=== PATIENT | male | born 1980 | race Caucasian/White ===

== ENCOUNTER 2022-04-30 08:39 | Emergency (ER) | payer SELFPAY ==
[2022-04-30] VITALS (12 sets, daily range): BP systolic 111–154; BP diastolic 77–97; PULSE 58–73; RESP 12–21; TEMP 36.8; O2SAT 99–100
--- NOTE | ~2022-04-30 | XR_ITS ---
EXAMINATION: XR chest 2V DATE: 04/30/2022 09:16 INDICATION: Left chest pain. Dizziness. TECHNIQUE: Frontal and lateral views of the chest were obtained on 3 radiographs. COMPARISON: None. FINDINGS: The chest demonstrates clear lungs without pneumonia, pleural effusion, or pneumothorax. Th e heart size is normal. IMPRESSION: 1. No acute cardiopulmonary disease. Reviewed, dictated and finalized at location B.
--- NOTE | 2022-04-30 08:42 | ECG_ITS ---
Measurements Intervals [place] Rate: 70 P: 59 AR: 160 QRS: 18 QRSD: 98 T: 35 QT: 387 QTc: 418 Interpretive Statements SINUS RHYTHM BASELINE ARTIFACT LOW-VOLTAGE QRS IN LIMB LEADS POSSIBLE RIGHT VENTRICULAR CONDUCTION DELAY [RSR (QR) IN V1/V2] BORDERLINE ECG NO PREVIOUS ECG AVAILABLE FOR COMPARISON Electronically Signed On 04-30-2022 17:27:37 CDT by Bipin Suárez M.D.
--- NOTE | 2022-04-30 08:54 | ED.CHESTPAIN ---
HPI - Chest Pain General Chief Complaint: Chest Pain Stated Complaint: Chest pain Time Seen by Provider: 04/30/22 08:53 History of Present Illness HPI narrative: Patient is a 41-year-old male who is previously healthy here for evaluation of chest pain for the past 12 hours. Patient describes the pain as a pulling sensation along the left side of his chest that begins under his left ribs and radiates into his left neck. States that the pain is better when he is lying down flat and will occasionally come on with movement of his left shoulder. He states that he has had similar type pain in the past but it has gone away on its own. He took an Advil before coming without significant relief of his pain. Additionally reporting dizziness today, states that he felt unsteady when he stood up, and fell over. He has never had a dizzy sensation like this in the past. States yesterday he was feeling somewhat weak and fatigued. Denies any difficulty breathing, cough, fevers, leg swelling, headaches or visual changes. Related Data Allergies Allergy/AdvReac Type Severity Reaction Status Date / Time No Known Allergies Allergy Verified 04/30/22 09:32 Review of Systems Review of Systems: Gen: Reports dizziness. Denies fevers or chills Eyes: Denies eye pain or visual change ENT: Denies congestion Respiratory: Denies shortness of breath or cough CV: Reports chest pain. Denies palpitations GI: Denies abdominal pain nausea, emesis or diarrhea denies burning, urgency, frequency or hematuria Musculoskeletal: Reports left-sided neck pain. Neuro: Reports generalized weakness. Denies numbness, tingling or focal weakness Skin: Denies rash Except as documented, all other systems reviewed and negative Exam Narrative: APPEARANCE: Well appearing, no pain in distress, well-nourished. Head: Normocephalic and atraumatic. EYES: Fatigable, horizontal nystagmus. PERRLA/EOMI, conjunctivae clear NOSE: No nasal drainage EARS: external ear normal in appearance THROAT: Oropharynx is clear. Mucous membranes are moist. NECK: Supple. No adenopathy, no masses. RESPIRATORY: Airway patent, respirations nonlabored. Clear to auscultation bilaterally, no rales, rhonchi, wheezing. CARDIOVASCULAR: Regular rate and rhythm without murmurs, rubs, or gallops. ABDOMINAL: Normoactive bowel sounds. Soft, nontender, nondistended. No rebound tenderness or guarding. MUSCULOSKELETAL: External rotation of left shoulder reproduces patient's pain. No tenderness to palpation along chest wall, ribs. extremities are warm and well-perfused. Moves all extremities well. No edema. NEURO: No drift of upper or lower extremities. [id number] normal. Cranial nerves II through XII intact. 5 out of 5 strength in bilateral upper and lower extremities. Normal speech. SKIN: No rash to the thorax. Skin is warm and dry. PSYCHIATRIC: Normal affect/mood.. Course Vital Signs Vital signs: Vital Signs Temperature 98.2 F 04/30/22 08:44 Pulse Rate 63 04/30/22 08:44 Respiratory Rate 14 04/30/22 08:44 Blood Pressure 154/97 H 04/30/22 08:44 Pulse Oximetry 99 04/30/22 08:44 Oxygen Delivery Room Air 04/30/22 08:44 Temperature 98.2 F 04/30/22 08:44 Pulse Rate 59 L 04/30/22 09:32 Respiratory Rate 16 04/30/22 09:32 Blood Pressure 119/77 04/30/22 09:32 Pulse Oximetry 99 04/30/22 09:32 Oxygen Delivery Room Air 04/30/22 08:44 MDM - Chest Pain MDM Narrative Medical decision making narrative: 41-year-old male here for evaluation of chest pain and dizziness for the past day. Here his vital signs are normal and he is nontoxic-appearing. His neurologic exam is normal and his heart lungs are clear to auscultation, chest pain is reproducible with movement of left shoulder. Able to ambulate in the ED without issue. Exam without evidence of volume overload so doubt heart failure. EKG without signs of active ischemia. Given the timing of pain to ER presentation, barrett
[2022-04-30 08:56] LABS: Basophils Absolute Auto 0.1 K/mm3 (0.0-0.1); Basophils Percent Auto 0.9 % (0.2-1.2); Eosinophils Absolute Auto 0.1 K/mm3 (0-0.3); Eosinophils Percent Auto 2.5 % (0-4.4); Hemoglobin 14.2 g/dL (14.0-18.0); Immature Granulocyte Absolute 0.02 K/mm3 (0.00-0.031); Immature Granulocyte Percent A 0.4 % (0-0.5); Lymphocytes Absolute Auto 1.56 K/mm3 (0.9-3.2); Lymphocytes Percent Auto 28.1 % (18.3-44.2); Mean Corpuscular HGB Conc 33.8 g/dl (32-36); Mean Corpuscular Hemoglobin 31.6 pg (26-34); Mean Corpuscular Volume 93.5 fl (80-100); Mean Platelet Volume 11.3 fl (7.4-10.4); Monocytes Absolute Auto 0.5 K/mm3 (0.1-0.6); Monocytes Percent Auto 9.7 % (2.6-8.5); Neutrophils Absolute Auto 3.2 K/mm3 (1.3-6.7); Neutrophils Percent Auto 58.4 % (45.5-73.1); Platelet Count Result 245 k/mm3 (150-375); Red Blood Count 4.49 M/mm3 (4.6-6.20); Red Cell Distribution Width 13.7 % (11.5-14.5); White Blood Count 5.6 K/mm3 (4.5-10.0)
[2022-04-30 09:07] LABS: Alanine Aminotransferase 33 U/L (6-50); Albumin Level 4.8 g/dL (3.5-5.1); Alkaline Phosphatase 77 U/L (38-126); Anion Gap 11 mmol/L (8-16); Aspartate Amino Transferase 30 U/L (17-59); Bilirubin,Total 0.6 mg/dL (0.2-1.3); Blood Urea Nitrogen 10 mg/dL (9-20); Calcium 9.1 mg/dL (8.4-10.2); Carbon Dioxide 26 mmol/L (22-30); Chloride 103 mmol/L (98-107); Estimated CRCL calculation 99 ml/min; Estimated Glomerular Filt Rate > 60; Glucose 108 mg/dL (65-110); Lipase 131 U/L (23-300); Sodium 140 mmol/L (137-145)
[2022-04-30 09:08] LABS: INR 0.9; Prothrombin Time 12.2 Seconds (11.1-14.7)
[2022-04-30 09:09] LABS: Partial Thromboplastin Time 27.4 SECONDS (22.3-36.8)
[2022-04-30 09:18] LABS: Troponin I < 0.012 ng/mL (0.000-0.034)
== END 2022-04-30 10:00 | disposition home or self-care (01) ==
PROVIDERS: Emergency Provider Emergency Medicine
DX: R07.89 Other chest pain (principal)
CPT/HCPCS: 36415; 71046; 80053; 83690; 84484; 85025; 85610; 85730; 93005; 99284

== ENCOUNTER 2023-11-30 13:25 | Emergency (ER) | payer BC, SELFPAY ==
[2023-11-30 13:38] VITALS: BP 135/78; PULSE 72; RESP 18; TEMP 36.6; O2SAT 100
--- NOTE | 2023-11-30 14:09 | ED.ABDPAIN ---
HPI - Abdominal Pain General Chief Complaint: Abdominal Pain Stated Complaint: Abdominal Pain Time Seen by Provider: 11/30/23 13:50 Source: patient, family, RN notes reviewed and old records reviewed Mode of arrival: ambulatory Limitations: no limitations History of Present Illness HPI narrative: 43 year old male presents to [facility] care with complaints of abdominal pain starting around 0400 this morning that included cramping and gas which was initially more centralized abdomen. Patient reports that pain has moved more to the right quadrant of his abdomen is sharp at times with nausea and vomiting about 1 hour prior to arrival in clinic. Patient states that he had a normal bowel movement at 0200 this morning and has not experienced any diarrhea. Patient reports no known fevers but has had hot flashes. Patient has noted pain on palpation to lower right abdomen. MD elicited complaint: abdominal pain Onset (ago): hour(s) (0400 today) Pain Consistency: other (increasing intensity) Pain scale (0-10): 6 Quality: aching and sharp Treatments prior to arrival: antacids Related Data Home Medications Medication Instructions Recorded Confirmed No Home Medications 11/30/23 11/30/23 Allergies Allergy/AdvReac Type Severity Reaction Status Date / Time No Known Allergies Allergy Verified 11/30/23 17:49 Review of Systems Review of Systems: CONSTITUTIONAL: Denies any fever, positive hot flashes ENT: Denies rhinorrhea, congestion, sore throat, or otalgia. CARDIOVASCULAR: Denies chest pain, palpitations, or edema. RESPIRATORY: Denies cough or dyspnea. GASTROINTESTINAL: Reports right sided abdominal pain, nausea, vomiting, no diarrhea. GENITOURINARY: Denies dysuria or hematuria. SKIN: Denies rash or itching. MUSCULOSKELETAL: Denies back pain, joint pain, or myalgia. NEUROLOGIC: Denies headache, numbness, or weakness. All systems reviewed & are unremarkable except as noted in HPI and below PMFSH Past Medical History Medical History (Updated 11/30/23 @ 18:50 by Fidelina Crowley NP) No active medical problems Family History Family History (Updated 11/30/23 @ 17:42 by Amberly Draper RN) Father Kidney stone Social History Social History (Updated 11/30/23 @ 15:51 by Caitlin Lezama PA-C) Smoking status: Never smoker Drinks per week: 6 Substance use: never Do You Feel Safe in your Home?: Yes Lack of Transportation: No Lack of Food: Never True Current Housing: I Have Housing Concerned About Future Housing: No Difficulty Paying Gas/Electric Bills: No Difficulty Paying for Meds: No Currently Unemployed: No Education: Don't Know Difficulty w/ Childcare or Family Care: No Spiritual care concerns: No Comments At time of signature, agree with nursing past medical, surgical, social and family history. There is no relevant family history pertinent to the presenting complaint Exam Narrative: GENERAL: Well-appearing, well-nourished, and in some acute distress. HEAD: Normocephalic, atraumatic. EYES: PERRLA, conjunctivae clear, and EOMI. ENT: Nares clear. Mucous membranes moist. Oropharynx without edema, erythema, or lesions. Tonsils not enlarged and without exudate. NECK: Supple. No lymphadenopathy CHEST: Speaks in full sentences. No respiratory distress.SAO2 100% on room air HEART: Regular rate and rhythm. ABDOMEN: Soft, flat, nondistended. positive guarding right abdomen, rebound tenderness, no rigidity. No pulsatilla masses. Bowel sounds present in all four quadrants. No organomegaly. Negative Ponce?s sign, positive McBurney point tenderness. No periumbilical tenderness. No Supra public tenderness or distension. Good femoral pulses bilaterally. No hernia noted. No scars or surface trauma. SKIN: Warm, dry, no rash. NEURO:? Alert and oriented x3. PSYCH: Normal mood and affect Course Course Emergency Course: Patient is aware of diagnosis, understands and agrees t
== END 2023-11-30 14:30 | disposition short-term general hospital (02) ==
PROVIDERS: Emergency Provider Registered Nurse
DX: R10.31 Right lower quadrant pain (principal)
CPT/HCPCS: 99212; G0463

== ENCOUNTER 2023-11-30 14:49 | Observation (INO) | payer BC, SELFPAY ==
--- NOTE | ~2023-11-30 | CT_ITS ---
EXAMINATION: CT abdomen pelvis w con DATE: 11/30/2023 15:38 INDICATION: Abdominal pain TECHNIQUE: Computed tomography (CT) of the abdomen and pelvis was performed with 100 mL Omnipaque-350 intravenous contrast. Automated exposure control and iterative reconstruction technique were employe d. The dose-length product was 551.40 mGy-cm. COMPARISON: None FINDINGS: Mild discoid atelectasis at the lingula. Visualized inferior heart is normal. No pericardial or pleur al effusion. 5 mm low-attenuation cyst versus hemangioma at the dome of the liver. Gallbladder, splee n, pancreas and bilateral adrenal glands are normal. There are bilateral low-attenuation renal cysts the largest on the right measuring 1.3 cm. There is a 7 x 5 mm appendicolith at the neck of the appen eladio. The more distal gas and fluid-filled appendix is dilated to 12 mm with small amount of surroundi ng inflammatory stranding consistent with acute appendicitis. Bowels are otherwise normal with no abn ormal wall thickening or obstruction. Bladder is normal. No free intraperitoneal gas or fluid. No pat hologically enlarged abdominal or pelvic lymphadenopathy. 3 mm retrolisthesis L5 on S1. Couple bone i slands at the right femoral head. IMPRESSION: 1. Appendicolith with dilation of the more distal appendix and mild periappendiceal inflammatory stra nding consistent with acute appendicitis. Dr. Lau discussed these findings with Dr. Lezama at 3: 48 PM. Reviewed, dictated and finalized at location A. IMPRESSION: 1. Appendicolith with dilation of the more distal appendix and mild periappendi ceal inflammatory stranding consistent with acute appendicitis. Dr. Lau di scussed these findings with Dr. Lezama at 3:48 PM.
[2023-11-30 14:57] VITALS: BP 127/73; PULSE 70; RESP 16; TEMP 37; O2SAT 98
[2023-11-30 15:12] LABS: Basophils Percent Auto 0.3 % (0.2-1.2); Eosinophils Percent Auto 0.1 % (0-4.4); Hematocrit 42.1 % (42.0-52.0); Hemoglobin 14.2 g/dL (14.0-18.0); Immature Granulocyte Absolute 0.05 K/mm3 (0.00-0.031); Immature Granulocyte Percent A 0.4 % (0-0.5); Lymphocytes Absolute Auto 0.83 K/mm3 (0.9-3.2); Lymphocytes Percent Auto 6.3 % (18.3-44.2); Mean Corpuscular HGB Conc 33.7 g/dl (32-36); Mean Corpuscular Hemoglobin 31.2 pg (26-34); Mean Corpuscular Volume 92.5 fl (80-100); Mean Platelet Volume 11.3 fl (7.4-10.4); Monocytes Absolute Auto 0.9 K/mm3 (0.1-0.6); Monocytes Percent Auto 6.6 % (2.6-8.5); Neutrophils Absolute Auto 11.4 K/mm3 (1.3-6.7); Neutrophils Percent Auto 86.3 % (45.5-73.1); Platelet Count Result 273 k/mm3 (150-375); Red Blood Count 4.55 M/mm3 (4.6-6.20); Red Cell Distribution Width 14.4 % (11.5-14.5); White Blood Count 13.2 K/mm3 (4.5-10.0)
[2023-11-30 15:13] LABS: Appearance Urine Clear (Clear); Bilirubin Urine Negative (Negative); Blood Urine Negative (Negative); Color Urine Yellow (Yellow); Glucose Urine UA Negative (Negative); Ketones Urine Negative (Negative); Leukocyte Esterase Ur Negative LEU/UL (Negative); Nitrate Urine Negative (Negative); Protein Urine Negative (Negative); Specific Grav Ur 1.009 (1.001-1.035); Urobilinogen Urine 0.2 mg/dL (<2.0)
[2023-11-30 15:21] LABS: Alanine Aminotransferase 35 U/L (6-50); Albumin Level 4.9 g/dL (3.5-5.1); Alkaline Phosphatase 85 U/L (38-126); Anion Gap 8 mmol/L (4-12); Aspartate Amino Transferase 31 U/L (17-59); Bilirubin,Total 0.7 mg/dL (0.2-1.3); Blood Urea Nitrogen 9 mg/dL (9-20); Carbon Dioxide 27 mmol/L (22-30); Chloride 102 mmol/L (98-107); Estimated CRCL calculation 108 ml/min; Estimated Glomerular Filt Rate > 60; Glucose 102 mg/dL (65-110); Lipase 103 U/L (23-300); Potassium 4.1 mmol/L (3.4-5.0); Sodium 137 mmol/L (137-145)
[2023-11-30 15:37] LABS: Add Urine Microscopic? NO
[2023-11-30 15:39] LABS: Estimated CRCL calculation 108 ml/min; Estimated Glomerular Filt Rate > 60
--- NOTE | 2023-11-30 15:48 | ED.ABDPAIN ---
HPI - Abdominal Pain General Chief Complaint: Abdominal Pain <DANIELLA Payan Last Filed: 11/30/23 16:47> Stated Complaint: abd pain <DANIELLA Payan Last Filed: 11/30/23 16:47> Time Seen by Provider: 11/30/23 14:55 <DANIELLA Payan Last Filed: 11/30/23 16:47> Source: patient <Caitlin DANIELLA Ludwig Last Filed: 11/30/23 16:47> Mode of arrival: ambulatory <DANIELLA Payan Last Filed: 11/30/23 16:47> Limitations: no limitations <DANIELLA Payan Last Filed: 11/30/23 16:47> History of Present Illness HPI narrative: This is a 43 year old male that presents to the ER for right lower quadrant pain. Reports this morning he started to have mid abdominal pain. This persisted and then localized to the right lower quadrant. Associated with nausea and vomiting. Denies fever, diarrhea or dysuria. <DANIELLA Payan Last Filed: 11/30/23 16:47> Related Data Home Medications: Home Medications Medication Instructions Recorded Confirmed No Home Medications 11/30/23 11/30/23 <DANIELLA Payan Last Filed: 11/30/23 16:47> Allergies/Adverse Reactions: Allergies Allergy/AdvReac Type Severity Reaction Status Date / Time No Known Allergies Allergy Verified 11/30/23 17:49 <DANIELLA Payan Last Filed: 11/30/23 16:47> Review of Systems Review of Systems: CONSTITUTIONAL: Denies fever GASTROINTESTINAL: Reports abdominal pain, nausea, vomiting. Denies diarrhea. GENITOURINARY: Denies dysuria <DANIELLA Payan Last Filed: 11/30/23 16:47> All systems reviewed & are unremarkable except as noted in HPI and below <DANIELLA Payan Last Filed: 11/30/23 16:47> [facility] Past Medical History Medical History: Medical History (Updated 11/30/23 @ 18:50 by Fidelina Crowley NP) No active medical problems <Caitlin Lezama PA-C - Last Filed: 11/30/23 16:47> Family History Family History: Family History (Updated 11/30/23 @ 17:42 by Amberly Draper RN) Father Kidney stone <Caitlin Lezama PA-C - Last Filed: 11/30/23 16:47> Social History Social History: Social History (Updated 11/30/23 @ 15:51 by Caitlin Lezama PA-C) Smoking status: Never smoker Drinks per week: 6 Substance use: never Do You Feel Safe in your Home?: Yes Lack of Transportation: No Lack of Food: Never True Current Housing: I Have Housing Concerned About Future Housing: No Difficulty Paying Gas/Electric Bills: No Difficulty Paying for Meds: No Currently Unemployed: No Education: Don't Know Difficulty w/ Childcare or Family Care: No Spiritual care concerns: No <Caitlin Lezama PA-C - Last Filed: 11/30/23 16:47> Exam Narrative: GENERAL: Well-appearing, well-nourished, and in no acute distress. HEAD: Normocephalic, atraumatic. EYES: EOMI. CHEST: Clear to auscultation. No respiratory distress. No wheezes rales or rhonchi HEART: Regular rate and rhythm. No murmur heard. Normal peripheral pulses. ABDOMEN: Soft, nondistended, normal active bowel sounds. Tender to palpation in the right lower quadrant, without guarding EXTREMITIES: Normal range of motion. No edema. SKIN: Warm, dry, no rash. NEURO: No focal deficits. Alert and oriented x3. PSYCH: Normal mood and affect <Caitlin Lezama PA-C - Last Filed: 11/30/23 16:47> Course Course Emergency Course: Patient updated on his workup and need for admission <Caitlin Lezama PA-C - Last Filed: 11/30/23 16:47> MUSIC EDUCATION DIRECTOR/PA Physician Supervision For this patient encounter, I reviewed the MUSIC EDUCATION DIRECTOR or PA documentation, treatment plan, and medical decision making; and I had [id number] time with this patient. <Ricky Hanna MD - Last Filed: 05/05/24 19:04> Consultations Consultation #1: Spoke with Dr. Garcia about patient and workup. Patient will be admitted. NPO after midnight. He may have clear liquids until then. Contin
[2023-11-30 16:03] VITALS: BP 130/90; PULSE 80; RESP 20; O2SAT 100
[2023-11-30] MEDS: MORPHINE SULFATE (*CRX) 4 MG/ML INJ IV PUSH ×2 (16:08→20:58)
[2023-11-30] MEDS: ONDANSETRON INJ 4 MG/2 ML VIAL IV PUSH ×2 (16:08→20:58)
[2023-11-30] MEDS: PIPERACILLN/TAZ 3.375GM/NS50ML 3.375 GM/50 ML BAG IVPB ×2 (16:40→21:00)
[2023-11-30] MEDS: SODIUM CHLORIDE 0.9% IV 1,000 ML 125 ML IV CONT (16:40)
[2023-11-30] MEDS: KETOROLAC 30 MG/ML VIAL (*BKC) IV PUSH (16:46)
[2023-11-30 16:47] VITALS: BP 136/88; PULSE 78; RESP 15; O2SAT 100
[2023-11-30 17:15] VITALS: O2SAT 100
[2023-11-30 17:30] VITALS: BP 124/72; PULSE 71; RESP 18; TEMP 36.1; O2SAT 99
[2023-11-30 17:35] VITALS: BMI 27.1
--- NOTE | 2023-11-30 17:39 | ADMGEN ---
This patient, Yordan Hooper, was admitted to [facility] Surg Room 312-01. Patient/family oriented to hospital policies and general routines including ID bracelet, bed and alarms, visiting hours, pain management, procedures, bathroom and other care routines, personal items, smoking policy, room service/diet, and visiting hours. Information on how to activate the Rapid Response Team has been discussed. Patient/Family are encouraged to report perceived risks to care and to ask questions if they do not understand what they are told or what they should do. Report from Rukhsana in the ER.
[2023-11-30 20:57] VITALS: BP 130/70; PULSE 81; RESP 18; TEMP 36.6; O2SAT 98
[2023-12-01] VITALS (14 sets, daily range): BP systolic 107–133; BP diastolic 60–113; PULSE 79–119; RESP 12–20; TEMP 36.3–38.1; O2SAT 92–100
[2023-12-01] MEDS: SODIUM CHLORIDE 0.9% IV 1,000 ML 125 ML IV CONT ×2 (00:37→09:19)
[2023-12-01] MEDS: MORPHINE SULFATE (*CRX) 4 MG/ML INJ IV PUSH ×2 (04:44→14:55)
[2023-12-01] MEDS: PIPERACILLN/TAZ 3.375GM/NS50ML 3.375 GM/50 ML BAG IVPB ×3 (04:45→17:31)
[2023-12-01 06:14] LABS: Basophils Absolute Auto 0.1 K/mm3 (0.0-0.1); Basophils Percent Auto 0.5 % (0.2-1.2); Eosinophils Percent Auto 0.1 % (0-4.4); Hematocrit 37.2 % (42.0-52.0); Immature Granulocyte Absolute 0.06 K/mm3 (0.00-0.031); Immature Granulocyte Percent A 0.5 % (0-0.5); Lymphocytes Absolute Auto 1.14 K/mm3 (0.9-3.2); Lymphocytes Percent Auto 10.3 % (18.3-44.2); Mean Corpuscular HGB Conc 32.3 g/dl (32-36); Mean Corpuscular Hemoglobin 30.8 pg (26-34); Mean Corpuscular Volume 95.4 fl (80-100); Mean Platelet Volume 11.6 fl (7.4-10.4); Monocytes Absolute Auto 0.7 K/mm3 (0.1-0.6); Monocytes Percent Auto 6.7 % (2.6-8.5); Neutrophils Absolute Auto 9.1 K/mm3 (1.3-6.7); Neutrophils Percent Auto 81.9 % (45.5-73.1); Platelet Count Result 224 k/mm3 (150-375); Red Cell Distribution Width 14.6 % (11.5-14.5); White Blood Count 11.1 K/mm3 (4.5-10.0)
[2023-12-01 06:22] LABS: Alanine Aminotransferase 24 U/L (6-50); Albumin Level 3.8 g/dL (3.5-5.1); Alkaline Phosphatase 63 U/L (38-126); Anion Gap 2 mmol/L (4-12); Aspartate Amino Transferase 23 U/L (17-59); Bilirubin,Total 1.2 mg/dL (0.2-1.3); Blood Urea Nitrogen 9 mg/dL (9-20); Calcium 8.9 mg/dL (8.4-10.2); Carbon Dioxide 28 mmol/L (22-30); Chloride 106 mmol/L (98-107); Estimated CRCL calculation 88 ml/min; Estimated Glomerular Filt Rate > 60; Glucose 121 mg/dL (65-110); Potassium 4.1 mmol/L (3.4-5.0); Sodium 136 mmol/L (137-145)
[2023-12-01] MEDS: KETOROLAC 30 MG/ML VIAL (*BKC) IV PUSH (06:25)
--- NOTE | 2023-12-01 13:30 | PM.IMHP ---
H&P: HPI History of Present Illness Date/Time: 12/01/23 13:30 Chief Complaint: Right lower quadrant abdominal pain Narrative: This is a 43-year-old man who presented to the emergency department with right lower quadrant pain that woke him up from sleep around 4:00 a.m. yesterday morning. His pain was vague and crampy in the periumbilical region at 1st, but then it localized to the right lower quadrant. He had 1 episode of nausea and vomiting yesterday for coming to the emergency department. He has never had any symptoms like this before. He has been feeling some chills but denies any fevers. In the emergency department he was noted to have an elevated white blood count and CT showed evidence of acute appendicitis. He was then admitted for further treatment. Review of Systems Review of Systems: All systems reviewed & are unremarkable except as noted in HPI and below Constitutional: Constitutional: Denies chills and Denies fever(s) Eyes: Eyes: Denies change in vision ENT: Denies hearing loss, Denies neck pain and Denies sore throat Cardiovascular: Cardiovascular: Denies chest pain and Denies dyspnea Respiratory: Respiratory: Denies cough, Denies dyspnea and Denies wheezing Gastrointestinal: Gastrointestinal: Reports as per HPI Genitourinary: Genitourinary: Denies hematuria and Denies dysuria Musculoskeletal: Musculoskeletal: Denies arthralgias, Denies joint swelling and Denies neck pain Allergic/Immunologic: Allergic/Immunologic: Denies wheezing PMF Past Medical History Medical History No active medical problems Family History Family History Father Kidney stone Social History Social History Smoking status: Never smoker Drinks per week: 6 Substance use: never Do You Feel Safe in your Home?: Yes Lack of Transportation: No Lack of Food: Never True Current Housing: I Have Housing Concerned About Future Housing: No Difficulty Paying Gas/Electric Bills: No Difficulty Paying for Meds: No Currently Unemployed: No Education: Don't Know Difficulty w/ Childcare or Family Care: No Spiritual care concerns: No Meds Home Medications and Allergies Home Medications Medication Instructions Recorded Confirmed Type No Home Medications 11/30/23 11/30/23 History Allergies Allergy/AdvReac Type Severity Reaction Status Date / Time No Known Allergies Allergy Verified 11/30/23 17:49 Vital Signs Vital Signs - 24 hr 11/30/23 14:57 11/30/23 16:03 11/30/23 16:47 Temperature 37.0 C Pulse Rate 70 80 78 Respiratory Rate 16 20 15 Blood Pressure 127/73 130/90 136/88 Pulse Oximetry 98 100 100 Oxygen Delivery 11/30/23 17:15 11/30/23 17:30 11/30/23 20:57 Temperature 36.1 C L 36.6 C Pulse Rate 71 81 Respiratory Rate 18 18 Blood Pressure 124/72 130/70 Pulse Oximetry 100 99 98 Oxygen Delivery Room Air 11/30/23 20:00 12/01/23 05:12 Temperature 36.6 C Pulse Rate 79 Respiratory Rate 16 Blood Pressure 112/63 Pulse Oximetry 98 Oxygen Delivery Room Air Exam Const: General: alert; No acute distress Orientation/consciousness: patient oriented x3 Limitations: no limitations HENMT: Head: normocephalic and atraumatic Ears: hearing grossly normal bilaterally Face/Nose/Sinus: Normal external nose present and Normal nares present Mouth: Yes Normal oral and palatal mucosa present and Yes moist mucous membranes Eyes: General: appearance normal, both eyes and all related structures Conjunctivae: conjunctivae normal Sclera: sclerae normal Pupils: Equal, round and reactive pupils present EOM: EOMs intact bilaterally Neck: Neck: normal visual inspection, full ROM, no lymphadenopathy, supple and no JVD Lymphatic: no lymphadenopathy noted Chest: Chest palpation & inspection: normal inspect
[2023-12-01] MEDS: ACETAMINOPHEN 500 MG TABLET 1000 MG PO (14:47)
--- NOTE | 2023-12-01 17:04 | WPDANESEPPF ---
Anes - Initial Pre Proc Eval Procedure: Operation Date: 12/01/23 18:00 Proposed Procedures p Laparoscopic Appendectomy, Possible Open - Denis Garcia DO Date/Time: 12/01/23 17:04 Surgeon: Denis Garcia DO Pre Op Diagnosis: accute appendicitis Patient Data Age: 43 Gender: M Height: 1.8 m Weight: 88.1 kg Last Vital Signs Temp 38.1 C H 12/01/23 14:47 Pulse 107 H 12/01/23 14:00 Resp 16 12/01/23 14:00 BP 116/60 12/01/23 14:00 Pulse Ox 95 12/01/23 14:00 O2 Del Method Room Air 12/01/23 08:00 Allergies Allergy/AdvReac Type Severity Reaction Status Date / Time No Known Allergies Allergy Verified 11/30/23 17:49 Home Medications Medication Instructions Recorded Confirmed Type No Home Medications 11/30/23 11/30/23 History Laboratory Tests 12/01/23 06:02 WBC 11.1 H K/mm3 (4.5-10.0) RBC 3.90 L M/mm3 (4.6-6.20) Hgb 12.0 L g/dL (14.0-18.0) Hct 37.2 L % (42.0-52.0) MCV 95.4 fl (80-100) MCH 30.8 pg (26-34) MCHC 32.3 g/dl (32-36) RDW 14.6 H % (11.5-14.5) Plt Count 224 k/mm3 (150-375) MPV 11.6 H fl (7.4-10.4) Immature Gran % (Auto) 0.5 % (0-0.5) Neut % (Auto) 81.9 H % (45.5-73.1) Lymph % (Auto) 10.3 L % (18.3-44.2) [place] % (Auto) 6.7 % (2.6-8.5) Eos % (Auto) 0.1 % (0-4.4) Baso % (Auto) 0.5 % (0.2-1.2) Lymph # (Auto) 1.14 K/mm3 (0.9-3.2) [place] # (Auto) 0.7 H K/mm3 (0.1-0.6) Eos # (Auto) 0.0 K/mm3 (0-0.3) Baso # (Auto) 0.1 K/mm3 (0.0-0.1) Abs Immat Gran (auto) 0.06 H K/mm3 (0.00-0.031) Absolute Neuts (auto) 9.1 H K/mm3 (1.3-6.7) Absolute Nucleated RBC 0.000 K/mm3 (0.0-0.012) Nucleated RBC % 0.0 % (0.0-0.2) Sodium 136 L mmol/L (137-145) Potassium 4.1 mmol/L (3.4-5.0) Chloride 106 mmol/L (98-107) Carbon Dioxide 28 mmol/L (22-30) Anion Gap 2 L mmol/L (4-12) BUN 9 mg/dL (9-20) Creatinine 1.00 mg/dL (0.7-1.3) Estim Creat Clear Calc 88 ml/min Estimated GFR > 60 (59 - ) Glucose 121 H mg/dL (65-110) Calcium 8.9 mg/dL (8.4-10.2) Total Bilirubin 1.2 mg/dL (0.2-1.3) AST 23 U/L (17-59) ALT 24 U/L (6-50) Alkaline Phosphatase 63 U/L (38-126) Total Protein 7.0 g/dL (6.3-8.2) Albumin 3.8 g/dL (3.5-5.1) Patient hx anesthesia problems: none Family hx anesthesia problems: none Results Review: All pre-operative results and documents have been reviewed as part of the pre-operative evaluation. [facility] Past Medical History Medical History No active medical problems Family History Family History Father Kidney stone Social History Social History Smoking status: Never smoker Drinks per week: 6 Substance use: never Do You Feel Safe in your Home?: Yes Lack of Transportation: No Lack of Food: Never True Current Housing: I Have Housing Concerned About Future Housing: No Difficulty Paying Gas/Electric Bills: No Difficulty Paying for Meds: No Currently Unemployed: No Education: Don't Know Difficulty w/ Childcare or Family Care: No Spiritual care concerns: No Anes - Eval Final PreProcedure Day of Procedure 12/01/23 17:04 Patient weight: overweight Heart: regular rate and rhythm Lungs: clear to auscultation Airway: Mallampati scale class II Neurological: alert and oriented Last oral intake: >/= 8 hours ASA classification: II Emergent: yes Anesthetic plan: proceed Anesthesia type and monitoring: general ETT and standard monitoring Results Review: All pre-operative results and documents have been reviewed as part of the pre-operative evaluation. Informed Consent: The patient's anesthetic plan and its attendant risks and benefits were disc
[2023-12-01] MEDS: LACTATED RINGERS 1,000 ML 30 ML IV CONT ×2 (17:06→19:00)
--- NOTE | 2023-12-01 17:51 | WPDHPUPDATE1 ---
History and Physical Update Update Date/Time: 12/01/23 17:51 History and Physical has been reviewed, including an updated exam of the patient. There are NO changes in the patient's condition. Risks, benefits, and alternatives have been discussed and questions answered. Patient agrees to proceed with procedure.
[2023-12-01] MEDS: BUPIVACAINE/EPINEPHRINE 0.5% 50 ML VIAL 30 ML INFILTRATE (18:26)
--- NOTE | 2023-12-01 18:57 | W.PM.PROC2 ---
Procedure Note - Detailed Date of Procedure 12/01/23 Pre-op Diagnosis accute appendicitis Post-op Diagnosis Other (Acute perforated appendicitis) Procedure Performed Laparoscopic appendectomy Surgeon Denis Garcia, DO Anesthesia General and Local (0.5% bupivacaine with epinephrine) Indications This is a 43-year-old man who presented to the emergency department yesterday with right lower quadrant abdominal pain. His pain started around 4:00 a.m. yesterday and progressed throughout the morning. The pain started out periumbilical and then localized to the right lower quadrant. He had an elevated white blood count and CT evidence of acute appendicitis. He was admitted and started on broad-spectrum IV antibiotics. Discussions were made with the patient about treatment options and decision was made to proceed with laparoscopic appendectomy, possible open. Findings Laparoscopic appendectomy was performed. The patient was found to have some phlegmonous changes in the right lower quadrant and the sigmoid epiploic appendages and terminal ileum were adherent over the appendix. As this was freed up, the appendix was found to be gangrenous and perforated in the midportion. There was only scant purulence drainage. The base of the appendix appeared healthy and viable. The appendix was removed and sent to the lab for pathology. Description of Procedure Procedure as well as risks, benefits, and alternatives were explained to the patient. The patient agreed to proceed. Written consent was obtained and placed in chart prior to procedure. The patient was brought back to surgical suite. He was placed supine on operating table. Time-out was done to confirm the patient and procedure. The patient was then intubated by the Anesthesia Department. His abdomen was prepped and draped in sterile fashion using chlorhexidine prep. A 12 mm incision was made at the inferior portion of the umbilicus. Blunt dissection was carried out down to the linea alba. The linea alba was then incised using a 15 blade scalpel. Then bluntly entered into the peritoneal cavity. A 12 mm trocar was then inserted, and carbon dioxide insufflation was used to create a pneumoperitoneum. The camera was inserted and the abdomen was inspected. No immediate abnormalities were identified. The patient was then placed in slight Trendelenburg position and rotated to the left. A 5 mm incision was made in the suprapubic region in midline and a 5 mm trocar was inserted under direct visualization. A 5 mm incision was made in the left lower quadrant and a 5 mm trocar was inserted under direct visualization. The right lower quadrant was carefully inspected. The cecum was identified and then this was traced back to the appendix. The appendix was identified and grasped at the mesoappendix and lifted anteriorly. Careful blunt dissection was carried out at the base of the appendix through the mesoappendix using a [place] grasper. An Endo-RENE 45 mm blue load stapler was then advanced across the base of the appendix and clamped and fired. A white reload was then clamped across the mesoappendix and fired. This freed up our appendix completely. It was then placed in an EndoCatch bag and removed through the umbilical port. The staple lines were then inspected. Hemostasis appeared adequate and the staple lines appeared secure. The area was then irrigated with sterile saline. The pelvis was then carefully inspected and irrigated with sterile saline as well and the remainder of the abdomen was carefully inspected. The patient was then flattened out in bed. One final inspection was made around the abdominal cavity and no other abnormalities were seen. The ports were then removed under direct visualization. The camera was removed and the pneumoperitoneum was released. The fascia of the umbilical incision was reapproximated using an 0 Vicryl [id number] suture. 0.5% bupivacaine with epinephrine was infiltrated
[2023-12-01] MEDS: HYDROcodone/acetaminophen (*CRX) 5-325 MG TABLET 1 TAB PO (22:46)
[2023-12-02] MEDS: PIPERACILLN/TAZ 3.375GM/NS50ML 3.375 GM/50 ML BAG IVPB ×3 (00:25→11:26)
[2023-12-02 01:50] VITALS: BP 119/70; PULSE 76; RESP 16; TEMP 36.3; O2SAT 95
[2023-12-02 05:15] VITALS: BP 114/71; PULSE 79; RESP 18; TEMP 36.3; O2SAT 94
[2023-12-02 06:12] LABS: Hematocrit 36.7 % (42.0-52.0); Mean Corpuscular HGB Conc 32.7 g/dl (32-36); Mean Corpuscular Hemoglobin 31.4 pg (26-34); Mean Corpuscular Volume 96.1 fl (80-100); Mean Platelet Volume 12.1 fl (7.4-10.4); Platelet Count Result 223 k/mm3 (150-375); Red Blood Count 3.82 M/mm3 (4.6-6.20); Red Cell Distribution Width 14.6 % (11.5-14.5); White Blood Count 15.4 K/mm3 (4.5-10.0)
[2023-12-02] MEDS: HYDROcodone/acetaminophen (*CRX) 5-325 MG TABLET 1 TAB PO (06:13)
[2023-12-02 06:35] LABS: Anion Gap 5 mmol/L (4-12); Blood Urea Nitrogen 8 mg/dL (9-20); Calcium 8.8 mg/dL (8.4-10.2); Carbon Dioxide 27 mmol/L (22-30); Chloride 106 mmol/L (98-107); Estimated CRCL calculation 108 ml/min; Estimated Glomerular Filt Rate > 60; Glucose 131 mg/dL (65-110); Potassium 3.6 mmol/L (3.4-5.0); Sodium 138 mmol/L (137-145)
[2023-12-02 07:57] VITALS: BP 104/55; PULSE 76; RESP 16; TEMP 35.9; O2SAT 94
--- NOTE | 2023-12-02 08:02 | WPDANESPN ---
Anes - Prog Note Post-Op Date/Time: 12/02/23 08:02 Cardiovascular status: normal Respiratory status: normal Airway patency: baseline Mental status: baseline Post-Op hydration status: normal Vital Signs: Last Vital Signs Temp 35.9 C L 12/02/23 07:57 Pulse 76 12/02/23 07:57 Resp 16 12/02/23 07:57 BP 104/55 L 12/02/23 07:57 Pulse Ox 94 12/02/23 07:57 O2 Del Method Room Air 12/01/23 20:09 O2 Flow Rate 8 12/01/23 19:15 Pain Score (VAS): 2 I/O: Intake & Output 12/01/23 12/02/23 12/02/23 23:59 07:59 15:59 Intake Total 300 1550 Balance 300 1550 Laboratory Tests 12/02/23 05:39 12/02/23 05:39 12/02/23 05:39 WBC 15.4 H RBC 3.82 L Hgb 12.0 L Hct 36.7 L MCV 96.1 MCH 31.4 MCHC 32.7 RDW 14.6 H Plt Count 223 MPV 12.1 H Sodium 138 Potassium 3.6 Chloride 106 Carbon Dioxide 27 Anion Gap 5 BUN 8 L Creatinine 0.80 Estim Creat Clear Calc 108 Estimated GFR > 60 Glucose 131 H Calcium 8.8 Post-procedural complaints: none Patient Feedback: Patient satisfied with anesthetic care.
[2023-12-02 11:52] VITALS: BP 113/75; PULSE 71; RESP 16; TEMP 36.3; O2SAT 98
--- NOTE | 2023-12-02 12:18 | PM.DS ---
DS: Admitting Diagnosis Discharge Date 12/02/2023 Admitting Diagnosis Acute appendicitis DS: Discharge Diagnosis Discharge Diagnosis (1) Acute perforated appendicitis: Code(s): K35.32 - Acute appendicitis with perforation, localized peritonitis, and gangrene, without abscess Status: Resolved DS: Summary Hospital Course Reason for hospitalization: This is a 43 year and who presented to the ER 2 days ago with complaints of right lower quadrant abdominal pain for 12 hours. Workup in the ED showed CT evidence of acute appendicitis. He was admitted for surgical evaluation and treatment. Hospital Course: Patient was started on broad-spectrum IV antibiotics and taken to the OR on 12/01/2023. He underwent a laparoscopic appendectomy. He had findings of acute perforated appendicitis during surgery. He was kept overnight with continued IV antibiotics. His diet was slowly advanced to regular diet today, which she is tolerating well. He is afebrile. He is tolerating activity with minimal incisional soreness. He is stable for discharge today and will be sent with oral antibiotics for another 10 days. Time spent discussing smoking cessation with patient: 3 to 10 minutes Status at Discharge Functional status at discharge: independent ambulation Overall status at discharge: patient is progressing back to baseline Time Spent with Patient Time attestation: Total time spent providing and/or coordinating discharge services: Time spent: Less than 30 minutes Exam Const: General: comfortable and no acute distress Resp: Auscultation: clear to auscultation bilaterally GI: Inspection: non-distended and incision (incisions dry and intact) GI Palp: Yes Soft to palpation, Yes Tenderness to palpation present (GI) (incisional) and No Guarding due to palpation present (GI) Auscultation: normal bowel sounds Neuro: General: moves all extremities and no focal motor deficits Extrem: General: no calf tenderness and no edema Psych: Mental Status: mental status grossly normal Insight: Good insight present (Psych) DS: Data Data Completed and Pending Pending studies at discharge: Pending at discharge 12/01/23 18:28 Surgical [PTH] Routine Labs on day of discharge: Labs from last 24 hours 12/02/23 05:39 WBC 15.4 H RBC 3.82 L Hgb 12.0 L Hct 36.7 L MCV 96.1 MCH 31.4 MCHC 32.7 RDW 14.6 H Plt Count 223 MPV 12.1 H Sodium 138 Potassium 3.6 Chloride 106 Carbon Dioxide 27 Anion Gap 5 BUN 8 L Creatinine 0.80 Estim Creat Clear Calc 108 Estimated GFR > 60 Glucose 131 H Calcium 8.8 Procedures/Treatments: Procedures Operation Date: 12/01/23 18:00 Actual Procedure Side Surgeon p Laparoscopic Appendectomy Not Applicable Denis Zambrano, Imaging Radiologist's impression: ITS Impressions Abdomen/Pelvis CT 11/30/23 15:41 IMPRESSION: 1. Appendicolith with dilation of the more distal appendix and mild periappendiceal inflammatory stranding consistent with acute appendicitis. Dr. Lau discussed these findings with Dr. Lezama at 3:48 PM. Discharge Plan Discharge Attending physician on discharge: Denis Zambrano Discharging Clinician: Maria Luisa Lorenzo Anticipated Discharge Date/Time: 12/02/23 12:18 Patient Disposition: Home, Self-Care Activity: may shower and other - see discharge instructions Diet: regular Wound Care Instructions: incision open to air Discharge Instructions: DISCHARGE INSTRUCTION SHEET FOR HERNIA, GALLBLADDER AND APPENDIX SURGERIES DR. ZAMBRANO 1. May shower in 24 hours, no soaking in bath x 2weeks. 2. Call office for: Wound increasingly painful or bleeding Vomiting Fever of greater than 101 degrees 3. If no bowel movement for three days, take 1 oz. (30 ml) Milk of Magnesia or MiraLax 17g 1 to 2 times daily. 4. No heavy lifting > 10-15 pounds x 2 weeks for laparoscopic cholecystectomy or appendectomy. 5.
== END 2023-12-02 13:52 | disposition home or self-care (01) ==
LOC: ANHED 16:46 → ANH3MEDSUR 16:58
PROVIDERS: Admitting Provider Surgery; Emergency Provider Physician Assistant; Visit Provider Surgery
PROC: 0DTJ4ZZ Resection of Appendix, Percutaneous Endoscopic Approach (ICD-10-PCS; CPT 44970; principal; 2023-12-01 18:00)
DX: K35.32 Acute appendicitis with perforation, localized peritonitis, and gangrene, without abscess (principal)
CPT/HCPCS: 44970; 36415; 74177; 80048; 80053; 81003; 83605; 83690; 85025; 85027; 88304; 96365; 96366; 96375; 96376; 99285; A9270; G0378; J1100; J1885; J2250; J2270; J2405; J2543; J2704; J3010; J7030; J7120; Q9967